=== PATIENT | male | born 1995 | race Caucasian/White ===

== ENCOUNTER 2017-08-06 07:27 | Emergency (ER) | payer BC ==
[2017-08-06] MEDS ORDERED: NS 1,000 ML IV ONE (07:51)
[2017-08-06] MEDS ORDERED: KETOROLAC 30 MG/1 ML SDV IVP ONE (07:51)
[2017-08-06] MEDS ORDERED: HYDROmorphONE/DILAUDID 1 MG/ML INJ IVP ONE (07:51)
--- NOTE | 2017-08-06 07:53 | EDPHY ---
H & P Stated Complaint: rectal cyst pain, was packed last night at urgent care Time Seen by Provider: 08/06/17 07:48 HPI/ROS: CHIEF COMPLAINT: Pain HISTORY OF PRESENT ILLNESS: Patient is a 21-year-old man who comes to the emergency department complaining of pain. He has a right gluteal abscess I and D'd last night at the urgent care. They directed him to come to the ER today for packing removal. He has not had a fever. No change in his bowel habits. He complains of severe pain. He did take 1 Percocet last night but has not had anything today. He is not on antibiotics. REVIEW OF SYSTEMS: Constitutional: denies: chills, fever, recent illness, recent injury EENTM: denies: blurred vision, double vision, nose congestion Respiratory: denies: cough, shortness of breath Cardiac: denies: chest pain, irregular heart rate, lightheadedness, palpitations Gastrointestinal/Abdominal: denies: abdominal pain, diarrhea, nausea, vomiting, blood streaked stools Genitourinary: denies: dysuria, frequency, hematuria, pain Musculoskeletal: denies: joint pain, muscle pain Skin: See HPI Neurological: denies: headache, numbness, paresthesia, tingling, dizziness, weakness Hematologic/Lymphatic: denies: blood clots, easy bleeding, easy bruising Immunologic/allergic: denies: HIV/AIDS, transplant EXAM: GENERAL: Well-appearing, well-nourished and in no acute distress. HEAD: Atraumatic, normocephalic. EYES: Pupils equal round and reactive to light, extraocular movements intact, sclera anicteric, conjunctiva are normal. ENT: TMs normal, nares patent, oropharynx clear without exudates. Moist mucous membranes. NECK: Normal range of motion, supple without lymphadenopathy or JVD. LUNGS: Breath sounds clear to auscultation bilaterally and equal. No wheezes rales or rhonchi. HEART: Regular rate and rhythm without murmurs, rubs or gallops. ABDOMEN: Soft, nontender, normoactive bowel sounds. No guarding, no rebound. No masses appreciated. BACK: No CVA tenderness, no spinal tenderness, step-offs or deformities EXTREMITIES: Normal range of motion, no pitting or edema. No clubbing or cyanosis. NEUROLOGICAL: Cranial nerves II through XII grossly intact. Normal speech, normal gait. 5/5 strength, normal movement in all extremities, normal sensation PSYCH: Normal mood, normal affect. SKIN: Abscess to right gluteus, no visible rectal involvement. Packing in place. No significant erythema surrounding. Source: Patient Exam Limitations: No limitations - Personal History Current Tetanus/Diphtheria Vaccine: Yes Current Tetanus Diphtheria and Acellular Pertussis (TDAP): Yes Tetanus Vaccine Date: < 10 years - Medical/Surgical History Hx Asthma: No Hx Chronic Respiratory Disease: No Hx Diabetes: No Hx Cardiac Disease: No Hx Renal Disease: No Hx Cirrhosis: No Hx Alcoholism: No Hx HIV/AIDS: No Hx Splenectomy or Spleen Trauma: No - Family History Significant Family History: No pertinent family hx - Social History Smoking Status: Never smoked Alcohol Use: Sober Drug Use: None Constitutional: Initial Vital Signs Temperature (C) 37 C 08/06/17 07:29 Heart Rate 105 H 08/06/17 07:29 Respiratory Rate 22 H 08/06/17 07:29 Blood Pressure 134/107 H 08/06/17 07:29 O2 Sat (%) 100 08/06/17 07:29 O2 Delivery Mode [Procedural Nasal Cannula 1st] O2 Delivery Mode Room Air O2 (L/minute) [Procedural 1st] 6 Allergies/Adverse Reactions: No Known Allergies Allergy (Unverified 08/06/17 07:28) Home Medications: Medication Instructions Recorded Oxycodone HCl [Dazidox] 5 mg PO Q4-6PRN PRN #10 tablet 08/06/17 Medical Decision Making Procedures: Procedure: Abscess drainage. The patient's abscess was located on the right gluteus. I obtained verbal consent from the patient to drain the abscess who was informed about the possibility of bleeding and pain. The abscess was explored with a hemostat and no additional purulent drainage expressed . I irrigated the wound and placed some packing. The patient tolerated the procedure well. The procedure was performed by myself. Procedure: Procedural sedation. . A pre-sedation evaluation was completed on the patient just prior to the procedure. Patient is an appropriate candidate for procedural sedation with a normal 3-3-2 rule assessment and a Mallampati airway score of class 1. The risks of the sedation were discussed including but not limited to dysrhythmia, need for airway intervention or general anesthesia, disability, ; and verbal consent obtained. A timeout was observed and patient's identity confirmed. The patient was sedated with 60 mg ketamine. The patient was monitored with continuous pulse oximetry, capnography, and manager monitoring. There were no complications and no significant hypoxemia. I remained at the bedside for the sedation. The total time I spent in the procedural sedation was 16 minutes. ED Course/Re-evaluation: After 1 mg of Dilaudid I was able to remove the patient's packing. They are still feels to be some induration possibly loculations deep inside that are very tender. We discussed options and agreed to perform sedation and attempt to I and D further.. 9:00 a.m. the patient was sedated with ketamine and further attempt to I and D was made. No significant purulence was found. Further loculations broken up. Patient tolerated the procedure well. We will continue him as planned and had pain medications. 9:40 a.m. the patient is feeling much better. We will stay the course and not start antibiotics at this time . He has a prescription for Percocet but is requesting that we have the oxycodone apart from the Tylenol. I will provide a small prescription of oxycodone. We discussed follow-up as well as indications for returning. Differential Diagnosis: Partial list of the Differential diagnosis considered include but were not limited to; abscess, fistula, perforation and although unlikely based on the history and physical exam, I also considered sepsis, osteomyelitis. I discussed these differential diagnoses and the plan with the patient as well as the usual and expected course. The patient understands that the diagnosis is provisional and that in medicine we are not always correct and that further workup is often warranted. Usual and customary warnings were given. All of the patient's questions were answered. The patient was instructed to return to the emergency department should the symptoms at all worsen or return, otherwise to followup with the physician as we discussed. - Data Points Medications Given: Discontinued Medications Hydromorphone HCl (Dilaudid) 1 mg IVP EDNOW ONE Stop: 08/06/17 07:52 Last Admin: 08/06/17 08:04 Dose: 1 mg Sodium Chloride (Ns) 1,000 mls @ 0 mls/hr IV EDNOW ONE; Wide Open PRN Reason: Protocol Stop: 08/06/17 07:52 Last Admin: 08/06/17 08:03 Dose: 1,000 mls Ketamine HCl (Ketamine) 60 mg IVP EDNOW ONE Stop: 08/06/17 08:56 Last Admin: 08/06/17 08:53 Dose: 60 mg Ketorolac Tromethamine (Toradol) 30 mg IVP EDNOW ONE Stop: 08/06/17 07:52 Last Admin: 08/06/17 08:03 Dose: 30 mg Departure - Departure Disposition: Home, Routine, Self-Care Clinical Impression: Abscess Condition: Fair Instructions: Abscess (ED) [facility]errals: [facility] [Clinic] - As per Instructions Luz Williamson MD [Medical Doctor] - As per Instructions (for wound followup) NONE *PRIMARY CARE P,. [Primary Care Provider] - As per Instructions Prescriptions: Oxycodone HCl [Dazidox] 5 mg PO Q4-6PRN PRN #10 tablet PRN Reason: Pain, Mild
[2017-08-06] MEDS ORDERED: KETAMINE 100 MG/10 ML SYR IV ONE (08:32)
[2017-08-06] MEDS ORDERED: KETAMINE 100 MG/10 ML SYR IVP ONE (08:55)
[2017-08-06 09:24] VITALS: RESP 16
[2017-08-06 10:20] VITALS: BP 131/65; PULSE 94; TEMP 98.8; O2SAT 95
== END 2017-08-06 10:20 | disposition home or self-care (01) ==
DX: L02.31 Cutaneous abscess of buttock (principal); E86.9 Volume depletion, unspecified
CPT/HCPCS: 96374; J1170; J1885

== ENCOUNTER 2017-11-23 02:34 | Emergency (ER) | payer BC ==
[2017-11-23 02:39] VITALS: RESP 16
[2017-11-23] MEDS ORDERED: MIDAZOLAM 2 MG/2 ML VIAL IVP ONE (02:46)
[2017-11-23] MEDS ORDERED: MIDAZOLAM 2 MG/2 ML VIAL ONE (03:12)
--- NOTE | 2017-11-23 03:13 | EDPHY ---
H & P Stated Complaint: took "H3O", confused Time Seen by Provider: 11/23/17 02:46 HPI/ROS: HPI The patient presents with altered mental status, brought in by ambulance because friends thought that he was unresponsive. Apparently he took 3-HO-PCE, which is a synthetic dissociated is hallucinogen which can be bought on the Internet. He took the several hours before his symptoms started and his friends noticed that he was not acting himself in seem to be hallucinating. REVIEW OF SYSTEMS Constitutional: No fever, no chills. Eyes: No discharge. ENT: No sore throat. Cardiovascular: No chest pain, no palpitations. Respiratory: No cough, no shortness of breath. Gastrointestinal: No abdominal pain, no vomiting. Genitourinary: No hematuria. Musculoskeletal: No back pain. Skin: No rashes. Neurological: No headache. PMHx: Healthy, prior ER visit for an abscess Soc Hx: Housed PHYSICAL General Appearance: Alert, appears to be hallucinating, getting out of bed Eyes: Pupils equal and round no pallor or injection ENT, Mouth: Mucous membranes moist Respiratory: There are no retractions, lungs are clear to auscultation Cardiovascular: Regular rate and rhythm Gastrointestinal: Abdomen is soft and non-tender, no masses, bowel sounds normal Neurological: A&O, moves all extremities Skin: Warm and dry, no rashes Musculoskeletal: Neck is supple non tender Extremities: symmetrical, full range of motion Psychiatric: Patient is somewhat agitated Source: Patient Exam Limitations: No limitations - Personal History Current Tetanus/Diphtheria Vaccine: Yes Current Tetanus Diphtheria and Acellular Pertussis (TDAP): Yes Tetanus Vaccine Date: < 10 years - Medical/Surgical History Hx Asthma: No Hx Chronic Respiratory Disease: No Hx Diabetes: No Hx Cardiac Disease: No Hx Renal Disease: No Hx Cirrhosis: No Hx Alcoholism: No Hx HIV/AIDS: No Hx Splenectomy or Spleen Trauma: No Other PMH: denies - Social History Smoking Status: Former smoker Constitutional: Initial Vital Signs Temperature (C) 37.0 C 11/23/17 02:36 Heart Rate 93 11/23/17 02:36 Respiratory Rate 16 11/23/17 02:36 Blood Pressure 161/109 H 11/23/17 02:36 O2 Sat (%) 95 11/23/17 02:36 O2 Delivery Mode Room Air Allergies/Adverse Reactions: No Known Allergies Allergy (Unverified 11/23/17 02:36) Home Medications: Medication Instructions Recorded Oxycodone HCl [Dazidox] 5 mg PO Q4-6PRN PRN #10 tablet 08/06/17 Medical Decision Making Differential Diagnosis: This is a 22-year-old male, brought in by ambulance for altered mental status after taking a synthetic dissociated hallucinogen which she purchased on the Internet. Patient keeps trying to get out of bed, talking on monitors. He is given Versed with some improvement in his symptoms. He was able to sleep and when he awoke he was more lucid. He felt well and no longer had any hallucinations. He will be discharged home. - Data Points Medications Given: Discontinued Medications Midazolam HCl (Versed) 1 mg IVP EDNOW ONE Stop: 11/23/17 02:47 Last Admin: 11/23/17 02:49 Dose: 1 mg Departure - Departure Disposition: Home, Routine, Self-Care Instructions: Polysubstance Abuse (ED) Referrals: NONE *PRIMARY CARE P,. [Primary Care Provider] - As per Instructions
[2017-11-23 05:04] VITALS: TEMP 98.1
[2017-11-23 05:05] VITALS: BP 119/65; PULSE 80; O2SAT 95
== END 2017-11-23 05:05 | disposition home or self-care (01) ==
LOC: EDUNIT#
DX: T40.991A Poisoning by other psychodysleptics [hallucinogens], accidental (unintentional), initial encounter (principal); R44.3 Hallucinations, unspecified; Z87.891 Personal history of nicotine dependence
CPT/HCPCS: 96374; J2250

== ENCOUNTER 2017-12-02 18:36 | Emergency (ER) | payer BC ==
[2017-12-02 18:42] VITALS: RESP 16; TEMP 98.2; O2SAT 98
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
[2017-12-02 20:26] VITALS: BP 122/70; PULSE 70
== END 2017-12-02 20:27 | disposition home or self-care (01) ==
DX: S09.90XA Unspecified injury of head, initial encounter (principal); Z87.891 Personal history of nicotine dependence; W51.XXXA Accidental striking against or bumped into by another person, initial encounter; Y93.89 Activity, other specified